=== PATIENT | male | born 1955 | race Caucasian/White ===

== ENCOUNTER → 2016-09-14 | Outpatient (CLI) | payer OTHER ==
--- NOTE | ~2016-09-14 | MR36 ---
[facility] A Service of [facility] & [facility] RADIOLOGY TEXT RESULTS PATIENT: SEFERINO MARES LOCATION: [facility] : 57 UNIT #: [id number] AGE: [address]: Karson Gomez MD SEX: M ORDER DR: [id number] [facility]. [place], [place] [address] [id number] O MR#: [id number] Acc #: [id number] NAME: SEFERINO MARES : 1955 SEX: M STUDY DATE/TIME: 09/14/2016 12:27 UNIT: [facility] ROOM: STUDY DESCRIPTION: MR Elbow Arthrogram Rt Attending Physician: Karson Gomez M.D. Referring Physician: Karson Gomez M.D. Primary Care Physician: Patricia Chamberlain MRI CENTER REPORT This report is preliminary unless electronic signature is present. EXAM MRI arthrogram right elbow 09/14/2016 COMPARISON Elbow arthrogram 09/14/2016 HISTORY Order states pain in right elbow, status post fracture radial head. History sheet states right elbow pain, radial head fracture, 09/13/2015. Unable to straighten the elbow. Loss of mobility, popping. No related surgery. TECHNIQUE Multiple series were performed after the fluoroscopic injection of dilute gadolinium contrast. FINDINGS There is subtle evidence of a healed transverse fracture across the anterior third of the radial head articular surface. There is a millimeter of minimal cortical step-off along the medial aspect of the anterior fracture line. There is a small underlying likely arthritic cyst. In the region of the fracture line and anterior third of the radial head, there is subtle moderate-grade chondromalacia. The radial head appears mildly posteriorly subluxed relative to the capitellum. There is irregularity with at least osteophyte formation of the coronoid process of the ulna; correlate radiographically for a healed coronoid fracture which in the setting of slight posterior radial head subluxation raises the possibility of sequela of an elbow dislocation. The coronoid process does demonstrate mild marrow edema. There is low grade chondromalacia of the posterior aspect of the capitellum. STS. [facility] A Service of [facility] & [facility] RADIOLOGY TEXT RESULTS PATIENT: SEFERINO MARES LOCATION: [facility] : 57 UNIT #: [id number] AGE: [address]: Karson Gomez MD SEX: M ORDER DR: There is lack of definition of the humeral origin of the conjoined radial collateral ligament proper and lateral ulnar collateral ligament suggesting sequela of old injury. The supinator crest insertion of the lateral ulnar collateral ligament appears maintained. The ulnar collateral ligament medially is normal. Common flexor - pronator origin are normal. There is mild edema in the pronator teres muscle without atrophy of an exact cause. Muscle strain could have this appearance. Common extensor insertional tendinosis and fraying is present without detachment. Common extensor tendon origin appears thickened. The ulnar nerve and cubital tunnel are normal. The remainder of the neurovascular bundles are normal. Biceps, brachialis, and triceps tendons are intact. IMPRESSION 1. Healed transverse fracture across the anterior third of the radial articular head with a minimal 1 mm depression/step-off. 2. Mild radiocapitellar chondromalacia/arthrosis detailed above. 3. Sequela of coronoid process fracture suspected with spurring and marrow edema. There is also evidence of posterior radial head subluxation relative to the capitellum. Correlate for sequela of elbow dislocation. 4. Lack of definition of the conjoined origin of the radial collateral ligament and the lateral ulnar collateral ligament compatible with chronic tear or detachment. 5. Common extensor tendinosis thickening with deep set insertional fraying/tendinosis without a discrete tear. 6. The ulnar side of the elbow is unremarkable. 7. No loose bodies seen. 1. Dictated by... Kenna Lee M.D. THIS IS AN ELECTRONICALLY VERIFIED REPORT Kenna Lee M.D. at 09/18/2016 8:19 AM [facility]/to TD: 09/17/2016 16:49 JOB #: [id number] MRI CENTER REPORT Page 1 of 1 COPY
--- NOTE | ~2016-09-14 | XA34 ---
[facility] A Service of [facility] & [facility] RADIOLOGY TEXT RESULTS PATIENT: SEFERINO MARES LOCATION: [facility] : 57 UNIT #: [id number] AGE: [address]: Karson Gomez MD SEX: M ORDER DR: [id number] [facility]. [place], [place] [address] [id number] O MR#: [id number] Acc #: [id number] NAME: SEFERINO MARES : 1955 SEX: M STUDY DATE/TIME: 09/14/2016 11:39 UNIT: [facility] ROOM: STUDY DESCRIPTION: XA Arthrogram Elbow Rt Attending Physician: Karson Gomez M.D. Referring Physician: Karson Gomez M.D. Ordering Physician: Marquez Vásquez M.D. Primary Care Physician: Patricia Chamberlain MEDICAL IMAGING REPORT This report is preliminary unless electronic signature is present EXAM Right elbow arthrogram. HISTORY Right elbow pain and limited range of motion after injuring it a year ago. Inject prior MRI TECHNIQUE The procedure was explained to the patient including risks, benefits and complications. Informed consent was obtained and a formal time-out procedure was utilized. Using sterile technique and following local anesthesia with 1% Xylocaine, a 25-gauge needle was placed into the joint under fluoroscopic guidance. The joint was injected with approximately 10 mL of a mixture of 20 mL of Isovue and 0.1 mL of gadolinium. One spot film was obtained with fluoroscopy time 0.3 minutes for a total dose of 1 mg. The patient will be sent for MRI scanning with results reported separately. IMPRESSION Technically successful injection of the elbow joint with contrast prior to MRI. MRI results will be reported separately. Dictated by... Eddie Herrera M.D. THIS IS AN ELECTRONICALLY VERIFIED REPORT Eddie Herrera M.D. at 09/15/2016 11:22 AM MELI/raffy TD: 09/14/2016 20:56 JOB #: [id number] STS. [facility] A Service of [facility] & [facility] RADIOLOGY TEXT RESULTS PATIENT: SEFERINO MARES LOCATION: [facility] #: [id number] : [birth year] UNIT #: [id number] AGE: [address]: Karson Gomez MD SEX: M ORDER DR: MEDICAL IMAGING REPORT Page 1 of 1 COPY
== END | disposition home or self-care (01) ==
LOC: CIVR 11:25
DX: M25.521 Pain in right elbow (principal); M94.221 Chondromalacia, right elbow; M77.8 Other enthesopathies, not elsewhere classified; Z87.81 Personal history of (healed) traumatic fracture
CPT/HCPCS: 73085; 73222; 77002; A9577; Q9967